=== PATIENT | female | born 1980 | race Caucasian/White ===

== ENCOUNTER 2018-10-02 18:18 | Emergency (ER) | payer SELFPAY ==
[2018-10-02 19:36] LABS: ABSOLUTE BASOPHILS # (AUTO) 0.1 10^3/uL (0.0-0.2); ABSOLUTE EOSINOPHILS # (AUTO) 0.1 10^3/uL (0.0-0.6); ABSOLUTE LYMPHOCYTES (AUTO) 2.9 10^3/uL (0.5-4.7); ABSOLUTE MONOCYTES (AUTO) 0.6 10^3/uL (0.1-1.4); BASOPHILS % (AUTO) 0.8 % (0-2); EOSINOPHILS % (AUTO) 0.5 % (0-6); LYMPHOCYTES % (AUTO) 24.7 % (13-45); MEAN CORPUSCULAR HEMOGLOBIN 29.4 pg (27.0-33.4); MEAN CORPUSCULAR HGB CONC 33.5 g/dL (32.0-36.0); MEAN CORPUSCULAR VOLUME 88 fl (80-97); PLATELET COUNT 249 10^3/uL (150-450); RED BLOOD COUNT 4.77 10^6/uL (3.72-5.28); RED CELL DISTRIBUTION WIDTH 13.4 % (11.5-14.0); TOTAL CELLS COUNTED % (AUTO) 100 %; WHITE BLOOD COUNT 11.6 10^3/uL (4.0-10.5)
[2018-10-02 19:41] LABS: APPEARANCE,URINE SLIGHTLY-CLOUDY; BILIRUBIN,URINE NEGATIVE (NEGATIVE); COLOR,URINE YELLOW; GLUCOSE, URINE NEGATIVE (NEGATIVE); KETONES,URINE 20 mg/dL (NEGATIVE); LEUKOCYTE ESTERASE,URINE NEGATIVE (NEGATIVE); NITRITE,URINE NEGATIVE (NEGATIVE); PROTEIN,URINE NEGATIVE (NEGATIVE); URINE SPECIFIC GRAVITY 1.018
[2018-10-02] MEDS ORDERED: CLONAZEPAM 1 MG TABLET PO ONE (19:47)
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
[2018-10-02 19:53] LABS: URINE BARBITURATES SCREEN NEGATIVE; URINE BENZODIAZEPINES SCREEN NEGATIVE; URINE COCAINE SCREEN NEGATIVE; URINE METHADONE SCREEN NEGATIVE; URINE PHENCYCLIDINE SCREEN NEGATIVE
[2018-10-02 19:58] LABS: ALANINE AMINOTRANSFERASE 24 U/L (9-52); ALKALINE PHOSPHATASE 55 U/L (38-126); ANION GAP 12 (5-19); ASPARTATE AMINO TRANSFERASE 17 U/L (14-36); BILIRUBIN,DIRECT 0.2 mg/dL (0.0-0.4); BILIRUBIN,TOTAL 0.5 mg/dL (0.2-1.3); BLOOD UREA NITROGEN 8 mg/dL (7-20); CALCIUM 9.7 mg/dL (8.4-10.2); CARBON DIOXIDE 25 mmol/L (22-30); CHLORIDE 105 mmol/L (98-107); GLUCOSE 92 mg/dL (75-110); POTASSIUM 4.3 mmol/L (3.6-5.0); SODIUM 141.9 mmol/L (137-145); TOTAL PROTEIN 6.9 g/dL (6.3-8.2)
[2018-10-02 20:01] LABS: ACETAMINOPHEN < 10 ug/mL (10-30); ALCOHOL < 10 mg/dL (NONE DETECTED); SALICYLATE < 1.0 mg/dL (2.0-20.0)
[2018-10-02 20:21] LABS: URINE AMPHETAMINES SCREEN UNCONFIRMED POSITIVE
[2018-10-02 20:22] LABS: URINE MARIJUANA (THC) SCREEN UNCONFIRMED POSITIVE
--- NOTE | 2018-10-02 23:30 | EKG REPORT ---
SEVERITY:- NORMAL ECG - SINUS RHYTHM : Confirmed by: Loco Juarez 02-Oct-2018 23:28:19
--- NOTE | 2018-10-03 10:06 | ER Document Report ---
Doctor's Note Notes: 10/03/18 10:05 This is a 38-year-old female with a history of anxiety and depression who presented yesterday with suicidal ideations in the setting of an argument with her . Patient's vital signs have been stable. Patient's labs have been stable. Currently awaiting psychiatric evaluation.
[2018-10-03] MEDS ORDERED: DULOXETINE HCL 30 MG CAPSULE.DR PO SCH (12:15)
[2018-10-03 15:13] VITALS: BP 135/80
[2018-10-03] MEDS ORDERED: CLONAZEPAM 1 MG TABLET PO SCH (18:00)
[2018-10-03] MEDS ORDERED: BUSPIRONE HCL 10 MG TABLET PO SCH (22:00)
[2018-10-04] MEDS ORDERED: BUSPIRONE HCL 10 MG TABLET PO SCH (08:00)
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
== END 2018-10-03 15:13 | disposition home or self-care (01) ==
LOC: ER 18:18
DX: F31.9 Bipolar disorder, unspecified (principal); R45.851 Suicidal ideations; F41.9 Anxiety disorder, unspecified; F90.9 Attention-deficit hyperactivity disorder, unspecified type; Z79.899 Other long term (current) drug therapy; T76.31XA Adult psychological abuse, suspected, initial encounter; Z63.0 Problems in relationship with spouse or partner; F17.200 Nicotine dependence, unspecified, uncomplicated; F12.10 Cannabis abuse, uncomplicated
CPT/HCPCS: 36415; 80053; 80307; 81001; 84703; 85025; 93005; 93010; 99285